=== PATIENT | female | born 1980 | race American Indian/Alaskan Native ===

== ENCOUNTER 2018-04-06 19:36 | Emergency (ER) | payer MEDICAID ==
[2018-04-06] MEDS ORDERED: Lidocaine 1% 30 ML SDV INJECT ONE (19:52)
[2018-04-06] MEDS ORDERED: Diphtheria,Pertussis(Acell),Tetanus Vaccine 0.5 ML SDV IM ONE (19:52)
--- NOTE | 2018-04-06 19:57 | EDM.PDOC ---
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 Right Hand Pain Score (Numeric/FACES): 8 - Related Data Allergies Allergy/AdvReac Type Severity Reaction Status Date / Time bacitracin Allergy Rash Verified 04/06/18 19:42 Sulfa (Sulfonamide Allergy Hives Verified 04/06/18 19:42 Antibiotics) Home Meds: Home Meds . [No Known Home Meds] 04/06/18 [History] Past Medical History Musculoskeletal History: Reports: Fracture - Past Surgical History Musculoskeletal Surgical History: Reports: Other (See Below) Other Musculoskeletal Surgeries/Procedures:: right ankle surgey Social & Family History - Family History Family Medical History: Noncontributory - Tobacco Use Smoking Status *Q: Current Every Day Smoker Years of Tobacco use: 20 Packs/Tins Daily: 1 - Recreational Drug Use Recreational Drug Use: No ED ROS GENERAL - Review of Systems Review Of Systems: ROS reveals no pertinent complaints other than HPI. ED EXAM, SKIN/RASH Exam: See Below Exam Limited By: No Limitations General Appearance: Alert, WD/WN, No Apparent Distress Ears: Hearing Grossly Normal Throat/Mouth: Normal Voice, No Airway Compromise Head: Atraumatic Neck: Non-Tender, Full Range of Motion Respiratory/Chest: No Respiratory Distress Cardiovascular: Regular Rate, Rhythm GI/Abdominal: Soft, Non-Tender Extremities: Other (right 5th finger lac, right index 1/4", NV wnl) Neurological: Alert, Oriented, Normal Cognition, Normal Gait, No Motor/Sensory Deficits Psychiatric: Normal Affect, Normal Mood Skin: Warm, Dry, Normal Color Location, Skin: Upper Extremity, Right Lymphatic: No Adenopathy ED SKIN PROCEDURES - Laceration/Wound Repair Right Finger Lac/Wound length In cm: 3 (right 5th finger & right index) Appearance: Subcutaneous, Linear, Clean Distal NVT: Neuro & Vascular Intact, No Tendon Injury Anesthetic Type: Local Local Anesthesia - Lidocaine (Xylocaine): 1% Plain Skin Prep: Chlorhexidine (Hibiciens) Exploration/Debridement/Repair: Wound Explored, In a Bloodless Field, No Foreign Material Found Closed with: Sutures Suture Size: 4-0 Suture Type: Nylon, Interrupted Sterile Dressing Applied: Provider Tetanus Status Addressed: Yes Complications: No Course - Vital Signs Last Recorded V/S: Last Vital Signs Temp 36.6 C 04/06/18 19:42 Pulse 78 04/06/18 19:42 Resp 20 04/06/18 19:42 BP 147/91 H 04/06/18 19:42 Pulse Ox 99 04/06/18 19:42 - Orders/Labs/Meds Orders: Active Orders 24 hr Category Date Time Status Vaccines to be Administered [RC] PER UNIT ROUTINE Care 04/06/18 19:53 Active Acetaminophen/HYDROcodone [[place] 325-10 MG] Med 04/06/18 20:21 Once 1 tab PO ONETIME ONE Medication Orders Hydrocodone Bitart/Acetaminophen ([place] 325-10 Mg) 1 tab PO ONETIME ONE Stop: 04/06/18 20:22 Meds: Medications Generic Name Dose Route Start Last Admin Trade Name Freq PRN Reason Stop Dose Admin Hydrocodone Bitart/Acetaminophen 1 tab 04/06/18 20:21 [place] 325-10 Mg PO 04/06/18 20:22 ONETIME ONE Discontinued Medications Generic Name Dose Route Start Last Admin Trade Name Freq PRN Reason Stop Dose Admin Diphtheria/Tetanus/Acell Pertussis 0.5 ml 04/06/18 19:52 04/06/18 20:00 Adacel IM 04/06/18 19:53 0.5 ml .ONCE ONE Administration Lidocaine HCl 30 ml 04/06/18 19:52 04/06/18 20:04 Xylocaine-Mpf 1% INJECT 04/06/18 19:53 30 ml ONETIME ONE Administration Departure - Departure Time of Disposition: 20:23 Disposition: Home, Self-Care 01 Condition: Good Clinical Impression: Finger laceration Qualifiers: Encounter type: initial encounter Finger: little finger Damage to nail status: without damage Foreign body presence: without foreign body Laterality: right Qualified Code(s): S61.216A - Laceration without foreign body of right little finger without damage to nail, initial encounter - Discharge Information Instructions: Sutured Wound Care, [id number] Forms: ED Department Discharge Additional Instructions: 1) keep wound clean dry covered 2) wound check if looks infected 3) suture removal 10 days - My Orders Last 24 Hours: My Active Orders 04/06/18 19:53 Vaccines to be Administered [RC] PER UNIT ROUTINE 04/06/18 20:21 Acetaminophen/HYDROcodone [[place] 325-10 MG] 1 tab PO ONETIME ONE - Assessment/Plan Last 24 Hours: My Active Orders 04/06/18 19:53 Vaccines to be Administered [RC] PER UNIT ROUTINE 04/06/18 20:21 Acetaminophen/HYDROcodone [[place] 325-10 MG] 1 tab PO ONETIME ONE
[2018-04-06] MEDS ORDERED: Acetaminophen/HYDROcodone 325-10 MG Tab PO ONE (20:21)
== END 2018-04-06 20:31 | disposition home or self-care (01) ==
LOC: DL.ED 19:36
DX: S61.210A Laceration without foreign body of right index finger without damage to nail, initial encounter (principal); S61.216A Laceration without foreign body of right little finger without damage to nail, initial encounter; F17.210 Nicotine dependence, cigarettes, uncomplicated; W45.8XXA Other foreign body or object entering through skin, initial encounter; Y93.89 Activity, other specified; Z88.2 Allergy status to sulfonamides; Z88.1 Allergy status to other antibiotic agents; Z23 Encounter for immunization
CPT/HCPCS: 12002; 90471; 90715; 99283; A9270; 12011

== ENCOUNTER 2019-03-17 21:52 | Emergency (ER) | payer SELFPAY ==
[2019-03-17] MEDS ORDERED: Acetaminophen/HYDROcodone 325-10 MG Tab PO ONE ×2 (21:53→22:50)
--- NOTE | 2019-03-17 21:54 | EDM.PDOC ---
ED HPI GENERAL MEDICAL PROBLEM - General Chief Complaint: Lower Extremity Injury/Pain Stated Complaint: AMBULANCE Time Seen by Provider: 03/17/19 21:40 Source of Information: Reports: Patient History Limitations: Reports: No Limitations - History of Present Illness INITIAL COMMENTS - FREE TEXT/NARRATIVE: This 38 yo female patient was brought to the ED by [facility] due to left knee pain. The patient reports she was out walking her dog when one of her children threw a ball. The dog took off running, twisted her knee and the patient heard a "crunching" sound. EMS applied a marina splint around the knee prior to arrival. Onset: Today Duration: Minutes:, Constant Location: Reports: Lower Extremity, Left Quality: Reports: Ache, Dull Severity: Moderate Improves with: Reports: None Worsens with: Reports: None Context: Reports: Other Associated Symptoms: Reports: No Other Symptoms Left Knee Pain Score (Numeric/FACES): 10 - Related Data Allergies Allergy/AdvReac Type Severity Reaction Status Date / Time bacitracin Allergy Rash Verified 03/17/19 21:33 Sulfa (Sulfonamide Allergy Hives Verified 03/17/19 21:33 Antibiotics) Home Meds: Home Meds Acetaminophen [Tylenol] 650 mg PO Q4H PRN tablet 09/30/18 [Rx] Albuterol [Proventil HFA] 2 puff INH Q4H PRN #1 inhaler 09/30/18 [Rx] Amoxicillin/Clavulanate K [Augmentin 875-125 MG] 1 tab PO BID #14 tablet [Rx] LORazepam [Ativan] 1 mg PO BEDTIME 7 Days tablet 09/30/18 [Rx] PARoxetine [Paxil] 20 mg PO DAILY #30 tablet 09/30/18 [Rx] guaiFENesin [Mucinex] 600 mg PO BID 5 Days tab.er 09/30/18 [Rx] predniSONE 40 mg PO WITHBREAKFAST #5 tablet 09/30/18 [Rx] Past Medical History - Past Health History Medical/Surgical History: Denies Medical/Surgical History Musculoskeletal History: Reports: Fracture - Past Surgical History Female Surgical History: Reports: Hysterectomy Musculoskeletal Surgical History: Reports: Other (See Below) Other Musculoskeletal Surgeries/Procedures:: right ankle surgey Social & Family History - Family History Family Medical History: Noncontributory Review of Systems - Review of Systems Review Of Systems: ROS reveals no pertinent complaints other than HPI. ED EXAM, GENERAL - Physical Exam Exam: See Below Exam Limited By: No Limitations General Appearance: Alert, WD/WN, Moderate Distress Eye Exam: Bilateral Eye: EOMI, Normal Inspection, PERRL Ears: Normal External Exam, Normal Canal, Hearing Grossly Normal, Normal TMs Nose: Normal Inspection, Normal Mucosa, No Blood Throat/Mouth: Normal Inspection, Normal Lips, Normal Teeth, Normal Gums, Normal Oropharynx, Normal Voice, No Airway Compromise Head: Atraumatic, Normocephalic Neck: Normal Inspection, Supple, Non-Tender, Full Range of Motion Respiratory/Chest: No Respiratory Distress, Lungs Clear, Normal Breath Sounds, No Accessory Muscle Use, Chest Non-Tender Cardiovascular: Normal Peripheral Pulses, Regular Rate, Rhythm, No Edema, No Gallop, No JVD, No Murmur, No Rub GI/Abdominal: Normal Bowel Sounds, Soft, Non-Tender, No Organomegaly, No Distention, No Abnormal Bruit, No Mass (Female) Exam: Deferred Rectal (Female) Exam: Deferred Back Exam: Normal Inspection, Full Range of Motion, NT Extremities: No Pedal Edema, Normal Capillary Refill, Leg Pain (left lateral knee tenderness with swelling), Limited Range of Motion (due to pain) Neurological: Alert, Oriented, CN II-XII Intact, Normal Cognition, Normal Gait, Normal Reflexes, No Motor/Sensory Deficits Psychiatric: Normal Affect, Normal Mood Skin Exam: Warm, Dry, Intact, Normal Color, No Rash Lymphatic: No Adenopathy Course - Vital Signs Last Recorded V/S: Last Vital Signs Temp 36.4 C 03/17/19 21:34 Pulse 63 03/17/19 21:34 Resp 18 03/17/19 21:34 BP 128/68 03/17/19 21:34 Pulse Ox 100 03/17/19 21:34 - Radiology Interpretation Free Text/Narrative:: EXAM: XR Left Knee EXAM DATE/TIME: 03/17/2019 9:56 PM CLINICAL HISTORY: 38 years old, female; Signs and symptoms; Other: Fall/pain TECHNIQUE: Imaging protocol: XR Left knee. Views: 3 views. COMPARISON: No relevant prior studies available. FINDINGS: Bones/joints: No malalignment. Possible small avulsion fracture off of the anterior tibial spine. Soft tissues: Normal. IMPRESSION: Possible tibial spine avulsion fracture Thank you for allowing us to participate in the care of your patient. Dictated and Authenticated by: Ludwig Mccormick MD 03/17/2019 10:39 PM Central Time ([place] & [place]) Departure - Departure Time of Disposition: 22:52 Disposition: Home, Self-Care 01 Condition: Fair Clinical Impression: Left anterior knee pain - Discharge Information *PRESCRIPTION DRUG MONITORING PROGRAM REVIEWED*: Not Applicable *COPY OF PRESCRIPTION DRUG MONITORING REPORT IN PATIENT HANH: Not Applicable Instructions: Crutch Use, Adult, [id number], Knee Pain, Adult, [id number] Forms: ED Department Discharge Care Plan Goals: The patient was advised of the examination and x-ray results during the visit. The patient was given an oral dose of [place] (10/325) while in the ED. The patient was discharged with [place] (10/325) #2 to take 1 by mouth every 6 hours as needed for pain and a script for [place] (5/325) #8 to take 1 by mouth every 6 hours as needed for pain. The patient should not be driving while taking the pain medications. The patient was placed in a left knee immobilizer and given a set of crutches. The patient was advised to remain non-weight bearing. The patient should follow-up with her primary care facility for continued evaluation and further treatment. If the patient has any additional symptoms or concerns, the patient should either return to the emergency department or visit her primary care facility.
[2019-03-17] MEDS ORDERED: Acetaminophen/HYDROcodone 325-10 MG Tab ONE (23:29)
== END 2019-03-17 23:40 | disposition home or self-care (01) ==
LOC: DL.ED 21:52
DX: M25.562 Pain in left knee (principal); Z88.8 Allergy status to other drugs, medicaments and biological substances; Z88.1 Allergy status to other antibiotic agents; Z79.899 Other long term (current) drug therapy
CPT/HCPCS: 73562; 99283; A9270